=== PATIENT | female | born 1985 | race Caucasian/White ===

== ENCOUNTER → 2018-08-12 18:39 | Observation (INO) ==
[2018-08-12 16:14] LABS: Bilirubin,Urine Negative (Negative); Blood,Urine Negative (Negative); Clarity,Urine Turbid (Clear); Color,Urine Yellow (Yellow); Glucose,Urine (UA) Normal (Normal); Ketones,Urine Negative (Negative); Leukocyte Esterase,Urine Small (Negative); Nitrite,Urine Negative (Negative); PH,Urine 7.5 pH Units (5.0-8.0); Protein,Urine Trace mg/dL (Neg-Trace); Specific Gravity,Urine 1.022 (1.010-1.025); Urobilinogen,Urine Normal (Normal)
[2018-08-12 16:17] LABS: Bacteria,Urine Moderate per hpf (None-Few); Hyaline Casts,Urine None Seen per lpf (None-Few); RBC,Urine 0-3 per hpf (0-3); Squamous Epithelial Cell,Urine Many per lpf (None-Few)
[2018-08-12 16:34] LABS: Amphetamine Screen,Urine Negative ng/mL (Cutoff=1000); Barbiturate Screen,Urine Negative ng/mL (Cutoff=200); Benzodiazepines Screen,Urine Negative ng/mL (Cutoff=200); Cannabinoid Screen,Urine Negative ng/mL (Cutoff = 50); Cocaine Screen,Urine Negative ng/mL (Cutoff= 300); Opiate Screen,Urine Negative ng/mL (Cutoff=300); Phencyclidine Screen,Urine Negative ng/mL (Cutoff=25)
--- NOTE | 2018-08-12 16:58 | OB/GYN Progress Note ---
Date of Encounter: 08/12/18 Time of Encounter: 16:54 - Assessment and Plan (1) 31 weeks gestation of Current Visit: Yes Status: Acute admitted for observation (2) NST (non-stress test) reactive on surveillance Current Visit: Yes Status: Acute Cat 1 tracing (3) UTI (urinary tract infection) in in third trimester Current Visit: Yes Status: Acute Patient to start Macrobid 1000cc bolus LR (4) Vaginal discharge during in third trimester Current Visit: Yes Status: Acute vaginosis panel pending Subjective - Subjective Principal diagnosis: lower abdominal pain, back pain, vaginal discharge Interval history: Patient is a 32 y/o @ 31w4d presents to labor and delivery with complaints of abdominal cramping and low back pain since 12 noon. Patient also reports discharge with odor a couple of days ago. 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 Patient reports some dysuria and urinary frequency. She denies intercourse or vaginal bleeding. Patient denies any complications with current . Patient receives care with Dr. Schmitz. Antepartum ROS: movement normal, no loss of fluid, no vaginal bleeding, no contractions Objective - Exam FHR: auscultation normal, category 1 FHR comments: 135 bpm moderate variability +15x15 accels no decels noted. Uterine irritability noted with an occasional contraction. Cat. 1 tracing. Auscultation: bilateral: normal Abdomen: Present: normal appearance, soft, gravid Uterus: Present: normal Cervical dilation: closed Cervix effacement: thick station: ballotable Comments: Speculum exam: No blood noted, moderate amount of thick white discharge. Vaginosis panel collected and sent to lab SVE following Speculum exam. - Labs Labs: Abnormal lab results Urine Clarity Turbid (Clear) A 08/12/18 16:00 Ur Leukocyte Esterase Small (Negative) H 08/12/18 16:00 Urine Microscopic WBC 5-15 per hpf (0-3) H 08/12/18 16:00 Ur Squamous Epith Cells Many per lpf (None-Few) H 08/12/18 16:00 Urine Bacteria Moderate per hpf (None-Few) H 08/12/18 16:00 Ur Culture Indicated? NO. (NO) A 08/12/18 16:00
[2018-08-12 17:33] LABS: Basophils # 0.1 K/mcL (0.0-0.2); Basophils % 0.7 %; Eosinophils # 0.1 K/mcL (0.0-0.6); Eosinophils % 1.2 %; Hematocrit 32.6 % (35.3-44.9); Hemoglobin 10.9 g/dL (11.5-15.4); Immature Granulocytes % 1.2 % (0-4); Lymphocytes # 1.5 K/mcL (0.6-4.6); Lymphocytes % 17.3 %; Mean Corpuscular HGB Conc 33.4 g/dL (31.6-35.5); Mean Corpuscular Hemoglobin 28.8 pg (28.0-33.3); Mean Corpuscular Volume 86.2 fL (83.0-100.0); Mean Platelet Volume 10.2 fL (9.4-12.4); Monocytes # 0.9 K/mcL (0.0-1.3); Monocytes % 9.8 %; Neutrophils # 6.2 K/mcL (1.6-8.9); Platelet Count 282 K/mcL (140-400); Red Blood Count 3.78 M/mcL (3.82-4.97); Segmented Neutrophils % 69.8 %
[2018-08-12 17:47] LABS: Candida DNA DETECTED (Not Detect); Gardnerella DNA Not Detected (Not Detect); Trichomonas DNA Not Detected (Not Detect)
[~2018-08-12 18:39] MED LIST: Nitrofurantoin (BID) 100 MG CAPSULE PO STA; Ringers Solution, Lactated 1,000 ML IVC ONE; Ringers Solution, Lactated 1,000 ML ONE; Terbutaline 1 MG/ML VIAL SQ ONE
== END | disposition home or self-care (01) ==
LOC: 1NENULAB
PROVIDERS: ADMIT Advanced Practice Midwife; ATTEND Advanced Practice Midwife

== ENCOUNTER → 2018-09-15 00:20 | Observation (INO) ==
[2018-09-14 23:38] LABS: Amphetamine Screen,Urine Negative ng/mL (Cutoff=1000); Barbiturate Screen,Urine Negative ng/mL (Cutoff=200); Benzodiazepines Screen,Urine Negative ng/mL (Cutoff=200); Cannabinoid Screen,Urine Negative ng/mL (Cutoff = 50); Cocaine Screen,Urine Negative ng/mL (Cutoff= 300); Opiate Screen,Urine Negative ng/mL (Cutoff=300); Phencyclidine Screen,Urine Negative ng/mL (Cutoff=25)
[2018-09-14 23:45] LABS: Bilirubin,Urine Negative (Negative); Blood,Urine Negative (Negative); Clarity,Urine Cloudy (Clear); Color,Urine Yellow (Yellow); Glucose,Urine (UA) Normal (Normal); Ketones,Urine 15 mg/dL (Negative); Leukocyte Esterase,Urine Small (Negative); Nitrite,Urine Negative (Negative); PH,Urine 7.5 pH Units (5.0-8.0); Protein,Urine Negative (Neg-Trace); Urobilinogen,Urine Normal (Normal)
[2018-09-14 23:48] LABS: Bacteria,Urine Few per hpf (None-Few); Hyaline Casts,Urine None Seen per lpf (None-Few); RBC,Urine 0-3 per hpf (0-3); Squamous Epithelial Cell,Urine Many per lpf (None-Few); WBC,Urine 15-30 per hpf (0-3)
--- NOTE | 2018-09-15 06:33 | OB/GYN Progress Note ---
Date of Encounter: 09/15/18 Time of Encounter: 00:00 - Assessment and Plan (1) 36 weeks gestation of Status: Acute Urine normal NST reactive No cervical change Discharge home with labor precautions Follow up in office as scheduled and PRN POC per consult with Dr Elizalde (2) NST (non-stress test) reactive on surveillance Status: Acute Subjective - Subjective Interval history: Ms Lieberman is a at 36 weeks that presents to triage with c/o contractions. Antepartum ROS: movement normal Objective - Vital Signs Vital Signs: Intake and Output 09/14/18 09/14/18 09/15/18 15:59 23:59 07:59 Other: Weight 86.636 kg - Exam FHR: category 1 Abdomen: Present: normal appearance, soft, gravid Uterus: Present: normal. Absent: firm, tenderness - Labs Labs: Abnormal lab results Urine Clarity Cloudy (Clear) A 09/14/18 23:00 Urine Ketones 15 mg/dL (Negative) H 09/14/18 23:00 Ur Leukocyte Esterase Small (Negative) H 09/14/18 23:00 Urine Microscopic WBC 15-30 per hpf (0-3) H 09/14/18 23:00 Ur Squamous Epith Cells Many per lpf (None-Few) H 09/14/18 23:00 Ur Culture Indicated? NO. (NO) A 09/14/18 23:00
== END | disposition home or self-care (01) ==
LOC: 1NENULAB
PROVIDERS: ADMIT Advanced Practice Midwife; ATTEND Advanced Practice Midwife

== ENCOUNTER 2018-10-08 08:00 | Inpatient (IN) ==
[2018-10-08] MEDS ORDERED: Famotidine 20 MG/2 ML VIAL IVP PRN (08:37)
[2018-10-08] MEDS ORDERED: *HR* Nalbuphine 10 MG/ML AMPUL IVP PRN (08:37)
[2018-10-08] MEDS ORDERED: Ondansetron 4 MG/2 ML VIAL IVP PRN (08:37)
[2018-10-08] MEDS ORDERED: Naloxone 0.4 MG/ML INJ IVP PRN (08:37)
[2018-10-08] MEDS ORDERED: Metoclopramide 10 MG/2 ML VIAL IVP PRN (08:37)
[2018-10-08] MEDS ORDERED: Oxytocin 20 units/ LR 1000 mL 20 UNIT/1,000 ML BAG IVC SCH ×2 (08:45→17:10)
[2018-10-08] MEDS ORDERED: Ringers Solution, Lactated 1,000 ML IVC SCH (08:45)
[2018-10-08 09:40] LABS: Basophils # 0.1 K/mcL (0.0-0.2); Basophils % 0.5 %; Eosinophils # 0.1 K/mcL (0.0-0.6); Eosinophils % 0.9 %; Hematocrit 33.5 % (35.3-44.9); Hemoglobin 10.8 g/dL (11.5-15.4); Lymphocytes # 1.4 K/mcL (0.6-4.6); Mean Corpuscular HGB Conc 32.2 g/dL (31.6-35.5); Mean Corpuscular Hemoglobin 27.2 pg (28.0-33.3); Mean Corpuscular Volume 84.4 fL (83.0-100.0); Mean Platelet Volume 10.4 fL (9.4-12.4); Monocytes # 0.7 K/mcL (0.0-1.3); Platelet Count 275 K/mcL (140-400); Red Blood Count 3.97 M/mcL (3.82-4.97); Segmented Neutrophils % 75.6 %
[2018-10-08 09:49] LABS: Amphetamine Screen,Urine Negative ng/mL (Cutoff=1000); Barbiturate Screen,Urine Negative ng/mL (Cutoff=200); Benzodiazepines Screen,Urine Negative ng/mL (Cutoff=200); Cannabinoid Screen,Urine Negative ng/mL (Cutoff = 50); Cocaine Screen,Urine Negative ng/mL (Cutoff= 300); Opiate Screen,Urine Negative ng/mL (Cutoff=300); Phencyclidine Screen,Urine Negative ng/mL (Cutoff=25)
[2018-10-08] MEDS ORDERED: Bupivacaine-MPF 0.25% 10 ML VIAL EP ONE (11:32)
[2018-10-08] MEDS ORDERED: *HR* FentaNYL (PF) 100 MCG/2 ML VIAL EP ONE (11:32)
[2018-10-08] MEDS ORDERED: *HR* FentaNYL (PF) 100 MCG/2 ML VIAL ONE (11:33)
[2018-10-08] MEDS ORDERED: Bupivacaine-MPF 0.25% 10 ML VIAL ONE (11:33)
[2018-10-08] MEDS ORDERED: Epidural Premix (fent/bupiv) 110 ML EP ONE (11:37)
[2018-10-08] MEDS ORDERED: Epidural Premix (fent/bupiv) 110 ML EP SCH (11:45)
--- NOTE | 2018-10-08 12:14 | Anesthesia Evaluation PreOp ---
Date of Encounter: 10/08/18 Time of Encounter: 11:42 - Past History Planned Operation: GISSELL Cardiac History: Denies any Significant Hx Pulmonary History: Denies Any Significant HX FENCE LABORER History: Other (anxiety, depression, PTSD) Other Medical History: Denies Any Significant HX Anesthesia History: No Prior Anesthetic Complications (GISSELL x 1--no issues; Denies personal and family h/o GA complications) : Yes Alcohol Use: none Drug use: none Medications and Allergies Citalopram 20 mg PO DAILY 10/08/18 [History] Loratadine [Claritin] 10 mg PO DAILY 10/08/18 [History] Allergy/AdvReac Type Severity Reaction Status Date / Time Tetanus Vaccines and Toxoid Allergy Severe Anaphylaxis Verified 09/14/18 22:41 [Tetanus Vaccines & Toxoid] TB serum Allergy Severe Anaphylaxis Uncoded 09/14/18 22:41 - Meds/Allergy Pre-op Review Medications Reviewed: Yes Allergies Reviewed: Yes Beta Blockers on Current Med List: No Anesthesia Results - Labs 10/08/18 08:53 Anesthesia Exam 126/81, HR92, 16 O2 Sat Height 1.57 m Weight 87.8 kg NPO (# of Hours): solids > 5 hours Pain Scale: 8 Pain Scale Used: Joy-Ledezma (Faces) - HEENT Pupil (Motor): Pupils equal Mallampati: II Teeth: Normal Oral Opening: Greater than 3 - FENCE LABORER LOC: Oriented FENCE LABORER Motor: Normal RUE, Normal LUE, Normal RLE, Normal LLE, Normal Face FENCE LABORER Sensory: Normal: RUE, LUE, RLE, LLE, Face - Cardiac Rhythm: Regular Murmur: None - Pulmonary Breath Sounds: bilateral Clear Respiratory Effort: Symmetrical Anesthesia Assess/Plan ASA Score: 2 Level of consciousness: Cooperative, Oriented, Restless Anesthetic Plan: Epidural Autologous Blood: No Monitoring Plan: Standard Monitors Recovery Plan: Other
--- NOTE | 2018-10-08 12:17 | Anesthesia Procedures ---
Date of Encounter: 10/08/18 Time of Encounter: 11:42 Procedures: Anesthesia - Epidural/Spinal Patient ID/Chart reviewed: Yes Patient examined: Yes OB Eval: Gestational age: 39 weeks 3 days OB Eval: : 7 OB Eval: Hx Para: 5 OB Eval: Contractions: Non-stressed pattern Consent Obtained: Yes Supplemental Oxygen: None/Room Air Site Prep: Aseptic Technique, Sterile prep and drape, Povidone-Iodine 1% Patient position: upright Local Anesthetic: Lidocaine 1% Amount of Local Anesthetic used: 5 Touhy Needle Gauge: 18 Touhy Needle Depth (cm): 5 Catheter Depth at Skin (cm): 10 Test Dose (1.5% Lido + Epi): Volume given (mls): 5 Test Dose Result: Negative Loading Dose: 0.25% Marcaine (mls): 5 Loading Dose: Fentanyl (mcg): 100 Loading Dose Administered: Thru Catheter Infusion Med: 0.125% Bupivacaine w/ 2 mcg/ml Fentanyl Infusion Rate (mls/hr): 14 (w/ demand bolus of 5mL q30min PRN) Catheter Secured in Place: Tegaderm, Tape Interspace Used: L3-L4 Loss of Resistance (MAKAYLA): Yes Blood: No CSF: No Paresthesia: No Procedure: successful on 1st attempt; Patient tolerated procedure well; VSS Vitals + FHT's: see Joavna GALLAGHER's electronic records for VS entry
[2018-10-08] MEDS ORDERED: EPHEDrine 50 MG/ML VIAL ONE (12:36)
--- NOTE | 2018-10-08 14:40 | OB/GYN Procedure Note ---
Delivery - Delivery Date: 10/08/18 Provider: Sean Schmitz Intrapartum events: none Delivery induction: oxytocin, urias Delivery augmentation: rupture of membranes, pitocin Delivery monitor: external FHT, external uterine Anesthesia: epidural Quantitated Blood Loss: 300 - Infant (s) A Infant Delivery Date: 10/08/18 Presentation: vertex Position: OA Route of delivery: Gender: Female Viability: Viable Pounds: 8 Ounces: 7 at 1 minute: 8 at 5 mins: 9 Shoulder Dystocia: not encountered Specimens collected: cord blood Placenta: spontaneous Cord: 3 umbilical vessels - Repair Episiotomy: none Laceration Description: None - Complications Delivery complications: none Delivery comments: This patient progressed to complete and pushing. She had a rapid spontaneous vaginal delivery of a female infant over an intact perineum. Infant's head was in the perineum with 1 push. The rest the was delivered with 1 push. Infant cried immediately upon delivery. The cord was cut to cut. The was in past nurse in attendance. Cord bloods obtained. Placenta was delivered spontaneously and intact. There are no cervical, vaginal, periurethral or perineal lacerations noted. Patient delivered a female infant weight was 8 lbs. 7 oz., 3830 g, Apgars are 8 at 1 minute and 9 at 5 minutes. Estimated blood loss is 300 mL. - Disposition Mom disposition: stable in LDR Sachse disposition: stable in LDR
--- NOTE | 2018-10-08 14:57 | OB/GYN History & Physical ---
Date of Encounter: 10/08/18 Time of Encounter: 07:30 Assessment and Plan (1) 39 weeks gestation of Current visit: Yes Status: Acute History of Present Illness Chief complaint: Induction HPI: Ms. Lieberman is a 33 year old female at 39+ weeks who presents to labor and delivery for induction of labor. She is doing well. She is having no complaints. Baby is very active for her. She has allergies to tetanus and TB serum. Current medications include vitamins. Socially she denies tobacco, alcohol, illicit drug use. Chronic medical conditions include anxiety and depression.. Surgical history includes a cholecystectomy, D&C was and teeth extraction, bilateral laser eye surgery and left shoulder arthroscopy. Obstetric history significant for 5 term vaginal deliveries. Family history is significant for asthma Past Med Surg Social Fam HX - Past Medical History Medical history: no medical history Additional medical history: hyperemisis gravidarum Psychiatric history: anxiety, depression, PTSD - Past Surgical History Surgical History: cholecystectomy, orthopedic, other, other Additional surgical history: D&C - Social History Smoking Status: Never smoker Smokeless Tobacco Status: No Alcohol use: none Drug use: none - Family History Mother Adopted: No Living Status: Still Living Hx Family Cardiac Disorders: No Hx Family Respiratory Disorders: No Hx Family Cancer: No Hx Family GI Disorders: No Hx Family Genitourinary Disorders: No Hx Family Endocrine Disorder: No Hx Family Musculoskeletal Disorders: No Hx Family Neuromuscular Disorders: No Hx Family Neurologic Disorders: No Hx Family HEENT Disorders: No Hx Family Autoimmune Disorders: No Hx Family Reproductive Disorders: No Hx Family Psychosocial Disorders: No Hx Family Medical Disorders: No Obstetrical History - Pregnancies : 7 Para: 5 Term: 5 Ab's: 1 Livin Medications and Allergies Citalopram 20 mg PO DAILY 10/08/18 [History] Loratadine [Claritin] 10 mg PO DAILY 10/08/18 [History] Allergy/AdvReac Type Severity Reaction Status Date / Time Tetanus Vaccines and Toxoid Allergy Severe Anaphylaxis Verified 09/14/18 22:41 [Tetanus Vaccines & Toxoid] TB serum Allergy Severe Anaphylaxis Uncoded 09/14/18 22:41 Review of System OB All systems PM: reviewed and no additional remarkable complaints except as stated Exam - Constitutional Constitutional: well developed, well nourished, no acute distress, average body habitus - HEENT HEENT: EOMI, PERRL - Neck Neck exam: full ROM - Lungs Respiratory exam: CTAB - Cardiovascular Cardiovascular exam: RRR - Abdomen Abdomen: Present: bowel sounds normal, gravid, non tender - Extremities Extremities exam: full ROM - Cervix Dilation: 8 Effacement: 20 Station: -3 - Uterus Uterus exam: Present: normal size Results Result Diagrams: 10/08/18 08:53 Abnormal lab results Hgb 10.8 g/dL (11.5-15.4) L 10/08/18 08:53 Hct 33.5 % (35.3-44.9) L 10/08/18 08:53 MCH 27.2 pg (28.0-33.3) L 10/08/18 08:53 All other labs normal. - VTE Reasons for not Prescribing Prophylaxis: Treatment not Indicated - Low risk for VTE
[2018-10-08] MEDS ORDERED: Rho Immune Globulin 1,500 UNIT SYRINGE IM PRN (17:10)
[2018-10-08] MEDS ORDERED: Acetaminophen 325 MG TABLET PO PRN (17:10)
[2018-10-08] MEDS ORDERED: Measles/Mumps/Rubella Vacc 0.5 ML VIAL SQ PRN (17:10)
[2018-10-08] MEDS: Ibuprofen 600 MG TABLET PO PRN (17:23)
[2018-10-08] MEDS ORDERED: Lanolin 7 G OINT...G. TP PRN (22:30)
[2018-10-09] MEDS: Ibuprofen 600 MG TABLET PO PRN ×2 (01:45→08:36)
[2018-10-09 08:06] VITALS: BP 111/74
[2018-10-09] MEDS ORDERED: Prenatal Vit/FA 1 EACH TABLET PO SCH (09:00)
[2018-10-09] MEDS ORDERED: Loratadine 10 MG TABLET PO SCH (09:00)
--- NOTE | 2018-10-09 09:47 | Discharge Summary ---
Date of Encounter: 10/09/18 Time of Encounter: 09:47 - Discharge Diagnosis (1) Status post vaginal delivery Priority: Primary Status: Acute (2) Breast feeding status of mother Priority: Secondary Status: Acute - Discharge Medications Prescriptions: Continued Loratadine [Claritin] 10 mg PO DAILY Citalopram 20 mg PO DAILY Home Medications: Citalopram 20 mg PO DAILY 10/08/18 [History] Loratadine [Claritin] 10 mg PO DAILY 10/08/18 [History] Allergies/Adverse Reactions: Allergy/AdvReac Type Severity Reaction Status Date / Time Tetanus Vaccines and Toxoid Allergy Severe Anaphylaxis Verified 09/14/18 22:41 [Tetanus Vaccines & Toxoid] TB serum Allergy Severe Anaphylaxis Uncoded 09/14/18 22:41 Data Procedures and tests throughout hospitalization: Laboratory Tests 10/08/18 10/08/18 10/08/18 08:53 08:53 14:56 WBC 9.3 RBC 3.97 Hgb 10.8 L Hct 33.5 L MCV 84.4 MCH 27.2 L MCHC 32.2 RDW 14.0 Plt Count 275 MPV 10.4 Immature Gran % 1.0 Seg Neutrophils % 75.6 Lymphocytes % 15.0 Monocytes % 7.0 Eosinophils % 0.9 Basophils % 0.5 Neutrophils # 7.0 Lymphocytes # 1.4 Monocytes # 0.7 Eosinophils # 0.1 Basophils # 0.1 Urine Opiates Screen Negative Ur Barbiturates Screen Negative Ur Phencyclidine Scrn Negative Ur Amphetamines Screen Negative U Benzodiazepines Scrn Negative Urine Cocaine Screen Negative U Marijuana (THC) Screen Negative Ur Drug Screen Interp See Below Baby's Blood Type O RH NEGATIVE Mother's Blood Type A RH NEGATIVE Rhogam Indicated NO Labs on day of discharge: Labs from last 24 hours 10/08/18 10/08/18 14:56 08:53 Urine Opiates Screen Negative Ur Barbiturates Screen Negative Ur Phencyclidine Scrn Negative Ur Amphetamines Screen Negative U Benzodiazepines Scrn Negative Urine Cocaine Screen Negative U Marijuana (THC) Screen Negative Baby's Blood Type O RH NEGATIVE Mother's Blood Type A RH NEGATIVE Rhogam Indicated NO Date of admission: 10/08/18 08:04 Primary care physician: Will Isidro MD Consults: 10/08/18 17:10 Consult to Disaster Recovery Analyst [CONS] Routine Comment: Vaginal delivery, consult needed Discharging clinician: Bethany Monroy Anticipated date of discharge: 10/09/18 - Patient Status Disposition: Home, Self-Care Condition: Good Overall status at discharge: patient is progressing back to baseline - Discharge Instructions Follow Up With: Will Isidro MD [Primary Care Provider] - Forms: Work/School Release - Diet and Activity Activity: increase activity as tolerated Diet: advance to your usual diet Hospital Course Reason for admission: induction of labor Delivery: Episiotomy: none Laceration: none Other procedures: none complications: none Discharge diagnosis: IUP at term delivered baby: female Hospital course: 33 y/o F now induced at greater than 39 weeks with . On day of discharge patient reports continued cramping with minimal vaginal bleeding treated with vicodin once aand continued motrin flor . She is tolerating regular diet and reports two BM. Denies fever or dysuria. She has history of depression and anxiety treated with citalopram during for which she plans to continue with follow up with PCP. She is breast feeding without difficulty and already has breast pump at home. - Delivery Date: 10/08/18 Provider: Sean Schmitz Intrapartum events: none Delivery induction: oxytocin, urias Delivery augmentation: rupture of membranes, pitocin Delivery monitor: external FHT, external uterine Anesthesia: epidural Quantitated Blood Loss: 300 - Infant (s) A Infant Delivery Date: 10/08/18 Presentation: vertex Position: OA Route of delivery: Gender: Female Viability: Viable Pounds: 8 Ounces: 7 at 1 minute: 8 at 5 mins: 9 Shoulder Dystocia: not encountered Specimens collected: cord blood Placenta: spontaneous Cord: 3 umbilical vessels - Repair Episiotomy: none Laceration Description: None - Complications Delivery complications: none Delivery comments: This patient progressed to complete and pushing. She had a rapid spontaneous vaginal delivery of a female over an intact perineum. 's head was in the perineum with 1 push. The rest the was delivered with 1 push. cried immediately upon delivery. The cord was cut to cut. The was in past nurse in attendance. Cord bloods obtained. Placenta was delivered spontaneously and intact. There are no cervical, vaginal, periurethral or perineal lacerations noted. Patient delivered a female infant weight was 8 lbs. 7 oz., 3830 g, Apgars are 8 at 1 minute and 9 at 5 minutes. Estimated blood loss is 300 mL. Blood type A negative, antibody negative UDS wnl UA wnl G&C negative RPR negative Hep B s non reactive Hep C non reactive HIV negative Rubella Immune Varicella Imm Time Attestation: Total time spent providing and/or coordinating discharge services: Exam - Constitutional Vitals: Temp Pulse Resp BP Pulse Ox 98.2 F 68 16 111/74 98 10/09/18 07:30 10/09/18 07:30 10/09/18 07:30 10/09/18 07:30 10/09/18 05:29 General appearance IM: cooperative, A&O X 3, no acute distress, obese - Respiratory Respiratory exam: Present: CTAB. Absent: wheezes - Cardiovascular Cardiovascular exam IM: Present: RRR. Absent: diastolic murmur, systolic murmur - GI/Abdominal GI/Abdominal exam IM: normal bowel sounds, tenderness (periumblical) - Uterine Tone: Firm Uterus Position: 1 Finger Above Umbilicus - Extremities Exam Extremities exam IM: Present: full ROM, radial pulses palpable and symmetrical. Absent: calf tenderness, pedal edema - Neurological Exam Neurological exam: alert, no focal deficits - Attending Attestation I examined this patient and my medical decision making was reviewed with the resident physician. I agree with the documented findings, disposition, and treatment plan as described above. Patient is status post vaginal delivery and meeting milestones for discharge today
[2018-10-09] MEDS ORDERED: *HR* HYDROcodone/Acet 5/325 mg TABLET PO PRN (10:07)
[2018-10-09 10:26] LABS: Basophils # 0.1 K/mcL (0.0-0.2); Basophils % 0.6 %; Eosinophils # 0.1 K/mcL (0.0-0.6); Eosinophils % 0.9 %; Hematocrit 33.4 % (35.3-44.9); Hemoglobin 10.4 g/dL (11.5-15.4); Immature Granulocytes % 0.7 % (0-4); Lymphocytes # 1.4 K/mcL (0.6-4.6); Lymphocytes % 11.9 %; Mean Corpuscular HGB Conc 31.1 g/dL (31.6-35.5); Mean Corpuscular Hemoglobin 26.6 pg (28.0-33.3); Mean Corpuscular Volume 85.4 fL (83.0-100.0); Mean Platelet Volume 10.3 fL (9.4-12.4); Monocytes # 0.8 K/mcL (0.0-1.3); Monocytes % 6.9 %; Neutrophils # 8.9 K/mcL (1.6-8.9); Platelet Count 235 K/mcL (140-400); Red Blood Count 3.91 M/mcL (3.82-4.97); Red Cell Distribution Width 14.3 % (11.5-14.5)
== END 2018-10-09 16:01 | disposition home or self-care (01) | DRG 560 ==
LOC: 1NENULAB 08:04 → 1NENUOBS 16:55
PROVIDERS: ADMIT Obstetrics & Gynecology; ATTEND Obstetrics & Gynecology